=== PATIENT | female | born 1995 | race Caucasian/White ===

== ENCOUNTER 2023-05-30 18:08 | Outpatient (CLI) | payer MEDICAID | END 2023-05-30 23:59 | disposition critical access hospital (66) | LOC: EMS 18:08 | DX: S89.92XA Unspecified injury of left lower leg, initial encounter (principal); W03.XXXA Other fall on same level due to collision with another person, initial encounter; Y93.75 Activity, martial arts; Y92.39 Other specified sports and athletic area as the place of occurrence of the external cause | CPT/HCPCS: A0425; A0427; A0999 ==

== ENCOUNTER 2023-05-30 18:31 | Emergency (ER) | payer MEDICAID ==
--- NOTE | 2023-05-30 18:47 | ED Physician Documentation ---
PD HPI LOWER EXT INJURY - Stated complaint Stated Complaint: LEFT LEG INJURY - Chief complaint Chief Complaint: Trauma Ext - History obtained from History obtained from: Patient - Additional information Additional information: Otherwise healthy 27-year-old woman was injured in [facility] today. A another person fell on her anterior left leg and she has moderate pain there that is better after fentanyl en route. No other injuries. Of note she does have a black eye on the right. When queried about this she says it was another [facility] injury but from 4 days ago. No persistent pain or headaches there. PD PAST MEDICAL HISTORY - Past Medical History Past Medical History: No - Past Surgical History Past Surgical History: Yes - Present Medications Home Medications: Ambulatory Orders Medication Instructions Recorded Confirmed HYDROcod/ACETAM 5/325 [[place] 5/325] 1 - 2 tab PO Q6H PRN #15 tablet 05/30/23 Wheelchair 1 unit TD ONCE #1 05/30/23 - Allergies Allergies/Adverse Reactions: Allergies Allergy/AdvReac Type Severity Reaction Status Date / Time No Known Drug Allergies Allergy Verified 05/30/23 18:39 - Social History Does the pt smoke?: No Smoking Status: Never smoker PD ED PE NORMAL - Vitals Vital signs reviewed: Yes - General General: Alert and oriented X 3, No acute distress - HEENT HEENT: Other (Infraorbital ecchymosis on the right no facial bony tenderness.) - Neck Neck: Supple, no meningeal sign, No bony TTP, C-Spine cleared by NEXUS criteria - Extremities Extremities: Other (Left leg is quite tender to the tibial plateau and proximal fibula. Ankle and knee themselves are nontender. No deformity.) - Neuro Neuro: Alert and oriented X 3, Normal speech Results - Vitals Vitals: Vital Signs - 24 hr 05/30/23 05/30/23 05/30/23 18:36 18:39 20:00 Temperature 36.5 C Heart Rate 87 67 84 Respiratory 16 18 22 Rate Blood Pressure 134/85 H 140/79 H 128/83 H O2 Saturation 100 98 97 If not protocol 0 : Oxygen Flow, liters/minute 05/30/23 05/30/23 05/30/23 20:10 20:18 20:36 Temperature Heart Rate 85 76 83 Respiratory 19 24 24 Rate Blood Pressure 121/76 111/69 117/80 O2 Saturation 97 100 96 If not protocol 0 : Oxygen Flow, liters/minute 05/30/23 20:39 Temperature Heart Rate 87 Respiratory 22 Rate Blood Pressure 117/80 O2 Saturation 100 If not protocol : Oxygen Flow, liters/minute Oxygen O2 Source Room air - Labs Labs: Laboratory Tests 05/30/23 05/30/23 05/30/23 19:26 19:26 19:26 WBC 9.0 RBC 4.20 Hgb 13.2 Hct 40.3 MCV 96.0 MCH 31.4 H MCHC 32.8 RDW 12.3 Plt Count 265 MPV 8.5 Neut # (Auto) 7.5 H Lymph # (Auto) 0.8 L [place] # (Auto) 0.6 Eos # (Auto) 0.0 Baso # (Auto) 0.0 Absolute Nucleated RBC 0.00 Nucleated RBC % 0.0 PT 13.3 H INR 1.2 Sodium 135 Potassium 3.5 Chloride 100 L Carbon Dioxide 26 Anion Gap 9.0 BUN 24 H Creatinine 0.8 Estimated GFR (MDRD) 86 L Glucose 112 H Calcium 8.9 Total Bilirubin 0.7 AST 21 ALT 26 Alkaline Phosphatase 110 Total Protein 6.5 Albumin 4.4 Globulin 2.1 Albumin/Globulin Ratio 2.1 Serum HCG, Qual NEGATIVE Procedures - Splint (location) - Minor LLE Splint applied by: Physician Type of splint: Fiberglass, Long arm, Long leg, Posterior, Stirrup Other: Patient tolerated well - Reduction Body part reduced: Left, Tib Fib Fracture or dislocation: Fracture dislocation Reduction aftercare: Alignment improved - Procedural sedation Sedation prep: Informed consent, Time out completed, Last meal (130pm), PE performed, ASA 1 - healthy Sedation Medications: propofol (80mg then 60mg then 60mg IVP) Mallampati classification: I Patient status during sedation: Unresponsive Sedation recovery: Recovered uneventfully Time in sedation (Minutes): 15 PD Medical Decision Making - ED course ED course: 27-year-old woman with a both bone lower leg injury on the left. She is neurovascularly intact. After initial x-rays I did talk with Dr. Regalado our on- call orthopedist who reviewed her images and felt he could be splinted and referred as an outpatient. She was splinted under propofol and reduced a bit and put in a three-way splint which she tolerated very well. Given crutches. Discussed signs and symptoms of compartment syndrome that she would need to return immediately for. She remained neurovascular intact on recheck at 9:08 PM. Departure - Departure Disposition: 01 Home, Self Care Clinical Impression: Tibia/fibula fracture, shaft Qualifiers: Encounter type: initial encounter Fracture type: closed Laterality: left Qualified Code(s): S82.202A - Unspecified fracture of shaft of left tibia, initial encounter for closed fracture; S82.402A - Unspecified fracture of shaft of left fibula, initial encounter for closed fracture Condition: Good Record reviewed to determine appropriate education?: Yes Instructions: ED Fx Lower Ext Follow-Up: Orthopedic Care [Provider Group] - Within 1 week Prescriptions: HYDROcod/ACETAM 5/325 [[place] 5/325] 1 - 2 tab PO Q6H PRN #15 tablet PRN Reason: Pain Wheelchair 1 unit TD ONCE #1 Comments: Call the orthopedics office on Friday for an appointment next week. Until then elevate is much as possible. Do not walk or bear weight on the left leg. Do not get the splint wet or take it off. If you develop severe pain please return for evaluation. Sent your prescription electronically to the [facility] in [place]. I am prescribing a short course of narcotic pain medication for you. These are potentially dangerous and addictive medications that should be used carefully. These medications may constipate you. Take an rmkv-ive-hhguuks stool softener (docusate) twice daily with plenty of water while taking these medications. If you go 24 hours without a bowel movement, take vqox-kjr-reczgih miralax, per package instructions. Do not drink or drive while taking these medications. If you received narcotic or sedating medications while in the emergency department, do not drive for 24 hours. Store this medication in a safe, secure place and out of reach of children. It is a violation of federal law to give or sell this medication to another person or to use in a manner other than prescribed. The ED will not refill narcotic prescriptions, including prescriptions lost or stolen. To dispose of unwanted medications: 1. [facility] provides a [facility] box for medication in pill form only (no liquids) 8:00 am to 4:30 p.m. Friday-Friday in the lobby of the [facility], [address], [place]. Empty pills into ziplock bag before disposal. Call [phone] for information. 2.[employer] is a free service available to all [facility] residents. Go to [email or web address] Note that many narcotic pain relievers also contain Tylenol/acetaminophen. Please ensure that your total dose of acetaminophen from all sources does not exceed 3 g (3000 mg) per day. Forms: PCP List
[2023-05-30 19:31] LABS: BASOPHILS % (AUTO) 0.4 %; EOSINOPHILS % (AUTO) 0.1 %; HCT - HEMATOCRIT 40.3 % (37.0-47.0); HGB - HEMOGLOBIN 13.2 g/dL (12.0-16.0); LYMPHOCYTES # (AUTO) 0.8 10^3/uL (1.5-3.5); LYMPHOCYTES % (AUTO) 9.3 %; MEAN CORPUSCULAR HEMOGLOBIN 31.4 pg (27.0-31.0); MEAN CORPUSCULAR HGB CONC 32.8 g/dL (32.0-36.0); MEAN PLATELET VOLUME 8.5 fL (7.9-10.8); MONOCYTES # (AUTO) 0.6 10^3/uL (0.0-1.0); MONOCYTES % (AUTO) 6.2 %; NEUTROPHILS # (AUTO) 7.5 10^3/uL (1.5-6.6); NEUTROPHILS % (AUTO) 82.9 %; PLT - PLATELET COUNT 265 10^3/uL (130-450); RED CELL DISTRIBUTION WIDTH 12.3 % (12.0-15.0)
--- NOTE | 2023-05-30 19:36 | XRAY Report ---
PROCEDURE: Tib/Fib LT INDICATIONS: leg inj TECHNIQUE: 4 views of the tibia and fibula were acquired. COMPARISON: None. FINDINGS: Bones: Comminuted and displaced fractures of the mid to distal tibial and fibular shafts.. No suspi cious bony lesions. Soft tissues: No suspicious soft tissue calcifications or masses. IMPRESSION: Comminuted and displaced fractures of the mid to distal tibial and fibular shafts. Reviewed by: Rolly Berg MD on 05/30/2023 7:35 PM PDT Approved by: Rolly Berg MD on 05/30/2023 7:35 PM PDT Station ID: [id number]
[2023-05-30 19:43] LABS: INR 1.2 (0.8-1.2); PT - PROTHROMBIN TIME 13.3 secs (9.9-12.6)
[2023-05-30] MEDS: KETOROLAC 15 MG/ML VIAL IVP STA (19:45)
[2023-05-30 19:53] LABS: ALBUMIN 4.4 g/dL (3.2-5.5); ALBUMIN/GLOBULIN RATIO 2.1 (1.0-2.2); ALKALINE PHOSPHATASE 110 IU/L (42-121); ALT ALANINE AMINOTRANSFERASE 26 IU/L (10-60); AST ASPARTATE AMINOTRANSFERASE 21 IU/L (10-42); BILIRUBIN,TOTAL 0.7 mg/dL (0.2-1.0); BUN - BLOOD UREA NITROGEN 24 mg/dL (6-20); CALCIUM 8.9 mg/dL (8.5-10.3); CARBON DIOXIDE - CO2 26 mmol/L (21-32); CHLORIDE 100 mmol/L (101-111); CREATININE 0.8 mg/dL (0.6-1.3); GFR - MDRD 86 (>89); GLUCOSE 112 mg/dL (74-104); POTASSIUM 3.5 mmol/L (3.5-4.5); SODIUM 135 mmol/L (135-145); TOTAL PROTEIN 6.5 g/dL (6.4-8.9)
[2023-05-30 19:56] LABS: HCG,QUALITATIVE BLOOD NEGATIVE
[2023-05-30] MEDS: PROPOFOL 200 MG/20 ML VIAL IVP STA (20:05)
--- NOTE | 2023-05-30 20:38 | XRAY Report ---
PROCEDURE: Tib/Fib LT INDICATIONS: Postreduction TECHNIQUE: 2 views of the tibia and fibula were acquired. COMPARISON: Same day radiograph. FINDINGS: Bones: Interval reduction and casting of the distal tibia and fibula shaft fracture. Similar alignme nt, with anterior subluxation of the proximal dominant bone fragment. Soft tissues: No suspicious soft tissue calcifications or masses. IMPRESSION: Similar alignment, status post casting and reduction. Reviewed by: Rashad Go MD on 05/30/2023 8:36 PM PDT Approved by: Rashad Go MD on 05/30/2023 8:36 PM PDT Station ID: [id number]
[2023-05-30] MEDS: HYDROcod/ACET 5/325 Prepack 4 PO STA (21:30)
[2023-05-30 21:45] VITALS: BP 123/71; O2SAT 98
[2023-05-30] MEDS: HYDROmorphone 1 MG/ML CARPUJECT IVP STA (21:46)
== END 2023-05-30 21:54 | disposition home or self-care (01) ==
LOC: EDBD → ED 18:31
DX: S82.202A Unspecified fracture of shaft of left tibia, initial encounter for closed fracture (principal); S82.402A Unspecified fracture of shaft of left fibula, initial encounter for closed fracture; W50.0XXA Accidental hit or strike by another person, initial encounter; Y93.75 Activity, martial arts
CPT/HCPCS: 27752; 36415; 73590; 80053; 84703; 85025; 85610; 96374; 96375; 99152; 99284; 99285; J1170

== ENCOUNTER 2023-06-09 07:37 | Outpatient (CLI) | payer MEDICAID ==
--- NOTE | 2023-06-09 13:03 | XRAY Report ---
PROCEDURE: Tib/Fib LT INDICATIONS: LEFT TIB/FIB FRACTURE TECHNIQUE: 2 views of the tibia and fibula were acquired. COMPARISON: Left lower extremity radiographs pre and post casting 05/30/2023. FINDINGS: Bones: Casting material obscures fine bony detail. Comminuted fractures at the lower third of the ti bial and fibular shafts are unchanged. Lateral displacement of the distal fracture fragment may be sl ightly increased. No dislocations. No suspicious bony lesions. Soft tissues: No suspicious soft tissue calcifications or masses. IMPRESSION: Mild lateral displacement of the distal left lower extremity, in relation to the tibial and fibular s haft fractures, which be slightly increased compared to the prior exam. This could be due to slight d ifferences in positioning. Reviewed by: Amrit Lu MD on 06/09/2023 1:02 PM PDT Approved by: Amrit Lu MD on 06/09/2023 1:02 PM PDT Station ID: [id number]
== END 2023-06-09 23:59 ==
LOC: DI.WOS 07:37
PROVIDERS: ATTEND Orthopaedic Surgery
DX: S82.302A Unspecified fracture of lower end of left tibia, initial encounter for closed fracture (principal); S82.832A Other fracture of upper and lower end of left fibula, initial encounter for closed fracture

== ENCOUNTER 2023-06-11 07:00 | Day surgery (SDC) | payer MEDICAID ==
[2023-06-11] MEDS ORDERED: ceFAZolin 2 GM VIAL ONE (07:10)
[2023-06-11] MEDS: CELECOXIB 100 MG CAPSULE PO ONE (07:38)
[2023-06-11] MEDS: ACETAMINOPHEN 500 MG TABLET PO ONE (07:38)
--- NOTE | 2023-06-11 07:52 | ANESTHESIA ---
Pre-Anesthesia VS, & Labs - Diagnosis L tib/fib fracture - Procedure ORIF L tib/fib with IM rodding Height: 5 ft 5 in Weight (kg): 59 kg Body Mass Index: 21.6 BMI Classification: Normal - NPO >8 hours - Is Patient ?: No - Lab Results Lab results reviewed: Yes Home Medications and Allergies Allergies/Adverse Reactions: Allergies Allergy/AdvReac Type Severity Reaction Status Date / Time No Known Drug Allergies Allergy Verified 06/11/23 07:43 Anes History & Medical History - Anesthetic History Family history of Anesthesia Complications: Denies Family history of Malignant Hyperthermia: Denies - Medical History Cardiovascular: reports: None Pulmonary: reports: None Gastrointestinal: reports: None Urinary: reports: None Musculoskeletal: reports: None Endocrine/Autoimmune: reports: None Skin: reports: None Smoking Status: Never smoker History of Cancer?: No Exam General: Alert, Oriented x3, Cooperative Dental: WNL Mouth Openin Fingerbreadth Neck Mobility: Normal Mallampati classification: II Thyromental Distance: 4-6 cm Respiratory: Lungs clear, Normal breath sounds, No respiratory distress Cardiovascular: Regular rate Neurological: Normal speech Mental/Cognitive Status: Alert/Oriented X3, Normal for patient Cognitive Status: Within normal limits Plan Anesthesia Type: General Regional Block: Per Surgeon's request for Post Op pain control (both surgeons request no regional anethesia) Consent for Procedure(s) Verified and Reviewed: Yes Code Status: Attempt Resuscitation ASA classification: 2-Mild systemic disease Is this case an emergency?: No
[2023-06-11] MEDS ORDERED: ePHEDrine 50 MG/ML VIAL IVP PRN (08:09)
[2023-06-11] MEDS ORDERED: fentaNYL 100 MCG/2 ML VIAL IVP PRN (08:09)
[2023-06-11] MEDS ORDERED: ATROPINE ABBOJECT 1 MG/10 ML SYRINGE IVP PRN (08:09)
[2023-06-11] MEDS ORDERED: METOCLOPRAMIDE 10 MG/2 ML VIAL IVP PRN (08:09)
[2023-06-11] MEDS ORDERED: MORPHINE 2 MG/ML CARPUJECT IVP PRN (08:09)
[2023-06-11] MEDS ORDERED: ONDANSETRON 4 MG/2 ML VIAL IVP PRN (08:09)
[2023-06-11] MEDS ORDERED: NALOXONE 0.4 MG/ML VIAL IVP PRN (08:09)
[2023-06-11] MEDS ORDERED: LIDOCAINE-PF 2% 10 ML AMP SUBQ ONE (08:32)
[2023-06-11] MEDS ORDERED: fentaNYL 100 MCG/2 ML VIAL ONE ×2 (08:32→10:47)
[2023-06-11] MEDS ORDERED: PROPOFOL 200 MG/20 ML VIAL IVP ONE (08:32)
[2023-06-11] MEDS ORDERED: MIDAZOLAM 2 MG/2 ML VIAL ONE (08:32)
[2023-06-11 08:54] LABS: HCG UR QUAL NEGATIVE
[2023-06-11] MEDS ORDERED: LACTATED RINGERS 1,000 ML IV SCH (09:00)
[2023-06-11] MEDS ORDERED: ONDANSETRON 4 MG/2 ML VIAL ONE ×2 (09:08→12:08)
[2023-06-11] MEDS ORDERED: DEXAMETHASONE 4 MG/ML VIAL ONE (09:08)
[2023-06-11] MEDS ORDERED: BUPIVACAINE 0.5% PF 10 ML VIAL ONE (09:08)
[2023-06-11] MEDS ORDERED: VANCOMYCIN 1 GM VIAL ONE (09:08)
[2023-06-11] MEDS ORDERED: LIDOCAINE-MPF 1% 30 ML VIAL ONE (09:08)
[2023-06-11] MEDS ORDERED: PHENYLEPHRINE HCL 0.5 MG/5 ML AMPULE ONE (09:16)
[2023-06-11] MEDS: VANCOMYCIN 1 GM VIAL MC ONE (09:35)
[2023-06-11] MEDS: LIDOCAINE 1% 50 ML MDV SUBQ ONE ×2 (09:36)
[2023-06-11] MEDS: BUPIVACAINE 0.5% PF 30 ML VIAL INFIL ONE ×2 (09:37)
[2023-06-11] MEDS ORDERED: HYDROmorphone 1 MG/ML CARPUJECT ONE ×2 (09:48→12:08)
[2023-06-11] MEDS ORDERED: KETOROLAC 30 MG/ML VIAL ONE (10:26)
[2023-06-11] MEDS ORDERED: ACETAMINOPHEN 1,000 MG/100 ML 1,000 MG/100 ML BAG IV ONE (11:21)
--- NOTE | 2023-06-11 11:27 | OPERATIVE REPORT ---
Operative Report - General Procedure Date: 06/11/23 Planned Procedure: Open reduction internal fixation left tibia fibula with intramedullary ramone Pre-Op Diagnosis: Displaced fractures left tibia and fibular shafts, closed Procedure Performed: Open reduction internal fixation left tibia with [employer]hew static locked 8.5 mm x 34 cm nail Post Op Diagnosis: Same as preoperative diagnosis - Procedure Note Primary Surgeon: Nahum Monzon MD Secondary Surgeon: Bairon Lloyd MD, Muna Simeon PAC Anesthesia Provider: Keshawn Sousa CRNA Anesthesia Technique: General ET tube Estimated Blood Loss (mL): 25 Indications: This is a healthy active 28-year-old woman who sustained a isolated injury to her left leg. She had 2 heavy men fall onto her who were doing [email or web address]. She had blunt trauma to the left tibia and fibula, sustained closed fractures to owen th bones and was seen on the day of injury in the emergency room where she had a long-leg splint applied. She was seen in our office and had an informed consent obtained for surgery for her left tibia, intramedullary nailing of left tibia. She has been elevating her left leg and keeping weight off the left leg with crutches. She has no symptoms or signs of compartment syndrome, no neurovascular deficit to left leg. Her x-rays showed distal midshaft fractures of tibia and fibula at the same level with comminution to the tibial fracture. Her fractures are unstable left tibia/fibula Findings: Closed, displaced, unstable distal midshaft left tibia and fibular fractures with comminution of the short oblique fractures Complications: None - Other Other Information/Narrative: The patient was brought to the operating room and placed in a supine position. A bone foam ramp was placed beneath the left leg. A gel bag was placed beneath the left buttock. After satisfactory general anesthesia was achieved, the left lower extremity was prepped and draped in a sterile manner in the usual fashion. A fracture of the left tibia was grossly unstable. A timeout procedure was performed by the entire operating room team and all were in agreement. A 3 cm longitudinal incision was made just proximal to the midline left patella. The incision was carried directly down through the quadriceps tendon to bone. The C-arm image intensifier was sterilely draped and was used intermittently throughout the procedure. The patella was mobilized and a smooth cannula was inserted into the patellofemoral joint engaging the anterior tibial cortex. A guidepin was inserted and aligned on both true AP and lateral views of the left knee. . Next the diesel maintenance technician was inserted down the canal and the long guidewire was inserted, fracture was reduced and the guidepin placed across the fracture into the metaphysis of the distal left tibia.The guidepin was carefully impacted using C arm image intensifier visualization. The 12.5 mm entry reamer was then utilized, placed over the guidepin and drilled to a depth of about 5 cm.The guidepin was then removed and intramedullary reaming was performed with a flexible reamers beginning at 9 and stopping at 10 mm. Good cortical contact was made with the 3 reamers. The 8.5 mm Oliveira [employer] Nephew ramone with guide was then impacted down the canal over the long guidepin. The fracture was concentrically reduced on AP and lateral views and then impacted gently across the fracture into the distal tibia. Alignment was very good on both AP and lateral views, mild comminution noted about the posteromedial tibia at the fracture site but good cortical contact of the tibia. The fibula was well aligned. There was minimal distraction noted. 2 distal locking screws were inserted using a freehand technique and the C-arm image intensifier. After the distal locking screws had been inserted retrograde impaction was achieved. The fracture was well opposed, both tibia and fibula, very good alignment. 2 proximal locking screws were inserted. Final imaging was obtained and showed good alignment of the fixation and fracture sites. Clinically there was no deformity to the leg in any plane. The knee joint was thoroughly irrigated with normal saline. The quadriceps tendon was repaired with oh strata fix suture. Skin was closed with a 3-0 subcuticular strata fix suture. The incisions for the locking screws were closed with 3-0 nylon. Dermabond was placed to the nail incision entry site. Dry sterile dressing was applied, well-padded short leg posterior fiberglass splint was applied. The patient received 2 g of Ancef intravenously. She tolerated procedure well. The compartments were soft at the end of the procedure. A physician ophthalmology assistant was medically necessary to help with prepping and draping, positioning, protection of vital structures, assistance during the procedure including wound closure, dressing and/or splinting.
[2023-06-11] MEDS ORDERED: ACETAMINOPHEN 500 MG TABLET PO PRN (11:45)
[2023-06-11] MEDS: LACTATED RINGERS 1,000 ML IV ONE (11:47)
[2023-06-11] MEDS: ONDANSETRON 4 MG/2 ML VIAL IVP PRN (12:10)
[2023-06-11] MEDS: HYDROmorphone 0.5 MG/0.5 ML SYRINGE IVP PRN (12:15)
--- NOTE | 2023-06-11 12:25 | ANESTHESIA POST OP EVALUATION ---
Anesthesia Post Eval - Post Anesthesia Eval Vitals: Last Vital Signs Temp 36.6 C 06/11/23 12:05 Pulse 95 06/11/23 12:10 Resp 12 06/11/23 12:10 BP 140/109 H 06/11/23 12:10 Pulse Ox 100 06/11/23 12:10 O2 Flow Rate CV Function Including HR & BP: Stable Pain Control: Satisfactory, Additional Therapies Ordered (dull ache treated with IV meds) Nausea & Vomiting: Negative Mental Status: Baseline Respiratory Status: Airway Patent Hydration Status: Satisfactory Anesthesia Complications: None
[2023-06-11] MEDS ORDERED: oxyCODONE 5 MG TABLET ONE (13:20)
[2023-06-11] MEDS: oxyCODONE 5 MG TABLET PO PRN (13:23)
[2023-06-11 13:43] VITALS: BP 133/99; O2SAT 97
--- NOTE | 2023-06-11 15:36 | XRAY Report ---
PROCEDURE: OR C-Arm Procedure INDICATIONS: ORIF LEFT TIB/FIB WITH IM CEZAR FLUORO TIME: 1.28 TECHNIQUE: Fluoroscopic images submitted for ovary. COMPARISON: X-ray 06/09/2023. FINDINGS: Intramedullary cezar within the tibia, with appropriate alignment of the mid tibial shaft fracture. Sta ble fracture of the fibula. IMPRESSION: Fluoroscopic guidance utilized for a tibia ORIF. Please see operative note. Reviewed by: Rashad Go MD on 06/11/2023 3:35 PM PDT Approved by: Rashad Go MD on 06/11/2023 3:35 PM PDT Station ID: [id number]
== END 2023-06-11 07:01 | disposition home or self-care (01) ==
LOC: SDS 07:00
PROVIDERS: ATTEND Orthopaedic Surgery
DX: S82.252A Displaced comminuted fracture of shaft of left tibia, initial encounter for closed fracture (principal); S82.452A Displaced comminuted fracture of shaft of left fibula, initial encounter for closed fracture
CPT/HCPCS: 27759; 81025; A9270; C1713; J0131; J1170; J2372; J3370; J7120

== ENCOUNTER 2023-09-01 12:46 | Outpatient (CLI) | payer MEDICAID ==
--- NOTE | 2023-09-01 14:17 | XRAY Report ---
PROCEDURE: Tib/Fib LT INDICATIONS: FX TECHNIQUE: 2 views of the tibia and fibula were acquired. COMPARISON: Left tibia/fibula x-ray for a 24 FINDINGS: Bones: Continued interval healing of distal tibial diaphyseal fracture status post intramedullary fi xation. No significant change in alignment. Continued interval healing of nonoperatively managed distal fibular diaphyseal fracture without signi ficant change in alignment. Disuse osteopenia of the ankle and hindfoot. Soft tissues: No suspicious soft tissue calcifications or masses. IMPRESSION: Continued healing of distal tibial and fibular diaphyseal fractures without significant change in ali gnment. Reviewed by: Roque Potter MD on 09/01/2023 2:16 PM PDT Approved by: Roque Potter MD on 09/01/2023 2:16 PM PDT Station ID: [id number]
== END 2023-09-01 12:47 | disposition home or self-care (01) ==
LOC: DI 12:46
PROVIDERS: ATTEND Orthopaedic Surgery
DX: S82.252D Displaced comminuted fracture of shaft of left tibia, subsequent encounter for closed fracture with routine healing (principal); S82.402D Unspecified fracture of shaft of left fibula, subsequent encounter for closed fracture with routine healing

== ENCOUNTER 2023-10-14 08:32 | Outpatient (CLI) | payer MEDICAID ==
--- NOTE | 2023-10-14 17:00 | XRAY Report ---
PROCEDURE: Tib/Fib LT INDICATIONS: DISPLACED COMMINUTED FX OF SHAFT OF L TIBIA TECHNIQUE: 4 views of the tibia and fibula were acquired. COMPARISON: Left tib-fib radiograph on September 01, 2023. FINDINGS: Bones: Intramedullary ramone and interlocking screw fixation of distal tibial comminuted diaphyseal fra cture demonstrates interval callus formation. Hardware is intact with no perihardware lucency to sugg est hardware loosening. Interval callus formation of mildly displaced distal fibular diaphysis fractu re with half shaft width lateral displacement of the distal fracture fragment. No suspicious bony les ions. Soft tissues: No suspicious soft tissue calcifications or masses. IMPRESSION: Intramedullary ramone and interlocking screw fixation of comminuted distal tibial fracture is intact wit hout complication. Interval osseous healing of the distal tibial and fibular fractures. Stable alignm ent. Reviewed by: Corrie Morgan MD on 10/14/2023 4:58 PM PDT Approved by: Corrie Morgan MD on 10/14/2023 4:58 PM PDT Station ID: [id number]
== END 2023-10-14 08:33 | disposition home or self-care (01) ==
LOC: DI 08:32
PROVIDERS: ATTEND Orthopaedic Surgery
DX: S82.252D Displaced comminuted fracture of shaft of left tibia, subsequent encounter for closed fracture with routine healing (principal); S82.832D Other fracture of upper and lower end of left fibula, subsequent encounter for closed fracture with routine healing